=== PATIENT | female | born 1955 | race Caucasian/White ===

== ENCOUNTER 2019-02-21 06:50 | Day surgery (SDC) | payer OTHER ==
[2019-02-20 11:44] VITALS: BMI 23.5
[2019-02-21] MEDS ORDERED: Fentanyl 100 MCG/2 ML VIAL ONE ×3 (08:04→12:20)
[2019-02-21] MEDS ORDERED: Midazolam HCl 2 mg/2 ml Vial ONE (08:04)
[2019-02-21 08:15] LABS: #Eosinphils 0.1 thou/uL (0.0-0.7); #Lymphocytes 1.5 thou/uL (1.20-3.40); #Monocytes 0.5 thou/uL (0.11-0.59); #Neutrophils 4.8 thou/uL (1.40-6.50); %Basophils 0.6 % (0.0-1.0); %Eosinophils 1.2 % (0.0-10.0); %Monocytes 7.3 % (0.0-10.0); %Neutrophils 68.8 % (42.0-75.0); Hemoglobin 11.3 g/dL (12.0-16.0); Mean Corpuscular HGB CONC 34.1 g/dL (32.0-36.0); Mean Corpuscular Hemoglobin 31.4 pg (27.0-31.0); Mean Platelet Volume 6.7 fL (7.4-10.4); Platelet Count 273 thou/uL (130-400); RBC Distribution Width 11.6 % (11.5-14.5); Red Blood Cell (RBC) Count 3.62 mill/uL (4.20-5.40)
[2019-02-21] MEDS ORDERED: Bupivacaine PF 0.5% 30 ML VIAL ONE (08:22)
[2019-02-21] MEDS ORDERED: Neomycin-Polymyxin 1 ML AMP ONE (08:22)
[2019-02-21 08:30] LABS: Anion Gap 13 mmol/L (10-20); BUN (Urea Nitrogen) 21 mg/dL (9.8-20.1); Calc. Creatinine Clearance 81 mL/min (70-130); Calcium 9.3 mg/dL (7.8-10.44); Carbon Dioxide 25 mmol/L (23-31); Chloride 104 mmol/L (98-107); Estimated GFR-MDRD 75; Glucose 98 mg/dL (80-115); Potassium 4.1 mmol/L (3.5-5.1); Sodium 138 mmol/L (136-145)
[2019-02-21] MEDS ORDERED: Ondansetron PF 4 MG/2 ML Vial IVP PRN (08:33)
[2019-02-21] MEDS ORDERED: traMADol HCl 50 MG TAB PO PRN ×2 (08:33)
[2019-02-21] MEDS ORDERED: Promethazine HCl 25 MG/ML VIAL IM PRN (08:33)
[2019-02-21] MEDS ORDERED: Ropivacaine 0.2% 550 ML 550 ML NERVE BLCK SCH (08:33)
[2019-02-21] MEDS ORDERED: Zolpidem Tartrate 5 MG TAB PO PRN (08:33)
[2019-02-21] MEDS ORDERED: HYDROcodone/Acetaminophen 10/325 mg Tablet PO PRN ×2 (08:33)
[2019-02-21] MEDS ORDERED: Fentanyl 100 MCG/2 ML VIAL IV PRN (08:34)
[2019-02-21] MEDS ORDERED: Lidocaine 1% (PF) 30 ML VIAL ONE (08:36)
[2019-02-21] MEDS ORDERED: Scopolamine 1.5 mg/72 hour Patch ONE (08:59)
--- NOTE | 2019-02-21 11:16 | OP ---
DATE OF PROCEDURE: 02/21/2019 PROCEDURE PERFORMED: Open reduction and internal fixation of right trimalleolar ankle fracture. PREOPERATIVE DIAGNOSIS: Right trimalleolar ankle. POSTOPERATIVE DIAGNOSIS: Right trimalleolar ankle. COMPLICATIONS: None. ESTIMATED BLOOD LOSS: 50 mL. WINDOWS ARCHITECT: Fiordaliza Desai PA-C. IMPLANTS: Synthes distal fibular locking plate with multiple locking and nonlocking screws as well as 4.0 partially-threaded screws. INDICATIONS: Ms. Alatorre fractured her right ankle. She had an unstable trimalleolar ankle fracture. She was indicated for open reduction and internal fixation to restore anatomic fixation and promote healing. Risks have been reviewed in detail. She has elected to proceed with the operation. DESCRIPTION OF PROCEDURE: Ms. Alatorre was identified in the preoperative holding area. Her correct extremity was marked. She was carried to the operating room. She was positioned supine. General anesthesia was induced. A multidisciplinary time-out was performed. The right lower extremity was prepped and draped in sterile fashion. We began the procedure with a posterolateral approach to the distal fibula. We dissected down through the subcutaneous tissues to the fascia, which was opened. We then exposed the lateral aspect of the fibula. We then worked deeply down to the bony level. We irrigated the bone and cleared the bony edges. We then reduced the fracture into its anatomic position using reduction clamps. At this point, we placed a distal fibular plate along the lateral cortex. Multiple screws were placed proximally and distally. We took x-ray images confirming that hardware was placed appropriately. There was no complications. At this point, we thoroughly irrigated with copious lavage. Next, we moved to the medial ankle. We dissected down through the subcutaneous tissues to the medial malleolus. We exposed the underlying medial fracture. We then reduced the fracture to its anatomic position with reduction clamp. Next, we placed two 4.0 partially-threaded screws. This held our medial malleolus fracture. Finally, we assessed the posterior malleolus with intraoperative x-ray. We placed two 3.5 mm screws from anterior to posterior orientation holding the posterior malleolus. Again, we took x-ray images confirming reduction. There were no complications. We took x-ray images including a stress view, which showed no syndesmosis widening. At this point, we thoroughly irrigated. We closed and a splint was placed. The patient was taken to the recovery room in good condition. Job ID: [id number]
[2019-02-21] MEDS ORDERED: Ketorolac Tromethamine 30 MG/ML VIAL ONE (11:17)
[2019-02-21] MEDS ORDERED: Dexamethasone 20 MG/5 ML VIAL ONE (11:17)
[2019-02-21] MEDS ORDERED: Ondansetron PF 4 MG/2 ML Vial ONE (11:17)
[2019-02-21] MEDS ORDERED: ePHEDrine/0.9% NaCl/PF SYRINGE 50 mg/10 ml ONE (11:17)
[2019-02-21] MEDS ORDERED: Ropivacaine 0.2% HCl/PF (40 MG/20 ML VIAL) ONE (11:17)
[2019-02-21] MEDS ORDERED: Lidocaine 1% PF 5 ML VIAL ONE (11:17)
[2019-02-21] MEDS ORDERED: PROPOFOL 200 MG/20 ML VIAL ONE (11:17)
[2019-02-21] MEDS ORDERED: Bupivacaine HCl 0.5%/Epinephrine 1:200,000/PF 30 ml Vial ONE (11:17)
[2019-02-21] MEDS ORDERED: PHENYLEPHRINE-NS 100 MCG/ML 10 ML SYRINGE ONE (11:17)
[2019-02-21] MEDS ORDERED: Ketorolac Tromethamine 30 MG/ML VIAL IVP SCH (12:00)
[2019-02-21] MEDS ORDERED: HYDROcodone/Acetaminophen 5/325 mg Tablet ONE (13:47)
--- NOTE | 2019-02-21 18:34 | RAD ---
XR Ankle Rt 2 View History: ORIF Comparison: None. Findings: 2 spot images were obtained. Satisfactory fixation of the trimalleolar fracture. Impression: Total fluoroscopy time: 26.2 seconds.
--- NOTE | 2019-02-23 14:25 | EKG ---
Test Reason : PREOP Blood Pressure : / mmHG Vent. Rate : 072 BPM Atrial Rate : 072 BPM P-R Int : 238 ms QRS Dur : 078 ms QT Int : 382 ms P-R-T Axes : 074 048 071 degrees QTc Int : 418 ms Sinus rhythm with 1st degree A-V block Septal infarct , age undetermined Abnormal ECG No previous ECGs available Confirmed by JORDAN MOE (2) on 02/23/2019 2:25:25 PM Referred By: STAN Confirmed By:JORDAN MOE
== END 2019-02-21 14:10 | disposition home or self-care (01) ==
LOC: SDC 06:50
PROVIDERS: ATTEND Orthopaedic Surgery
PROC: 3E0T3BZ Introduction of Anesthetic Agent into Peripheral Nerves and Plexi, Percutaneous Approach (ICD-10-PCS; principal; 2019-02-21)
PROC: 0QSG04Z Reposition Right Tibia with Internal Fixation Device, Open Approach (ICD-10-PCS; principal; 2019-02-21)
PROC: 0QSJ04Z Reposition Right Fibula with Internal Fixation Device, Open Approach (ICD-10-PCS; principal; 2019-02-21)
DX: S82.851A Displaced trimalleolar fracture of right lower leg, initial encounter for closed fracture (principal); G89.18 Other acute postprocedural pain; I11.9 Hypertensive heart disease without heart failure; E78.5 Hyperlipidemia, unspecified; I48.91 Unspecified atrial fibrillation; G47.30 Sleep apnea, unspecified; G43.909 Migraine, unspecified, not intractable, without status migrainosus; E78.00 Pure hypercholesterolemia, unspecified; M85.80 Other specified disorders of bone density and structure, unspecified site; Z79.01 Long term (current) use of anticoagulants; Z79.810 Long term (current) use of selective estrogen receptor modulators (SERMs); Z79.899 Other long term (current) drug therapy; X50.1XXA Overexertion from prolonged static or awkward postures, initial encounter; W01.0XXA Fall on same level from slipping, tripping and stumbling without subsequent striking against object, initial encounter
CPT/HCPCS: 36415; 76000; 80048; 85025; 93005; 93010; A4306; C1713; J0670; J0690; J1100; J1885; J2001; J2250; J2405; J2704; J2795; J3010; S0020

== ENCOUNTER 2020-01-21 15:09 | Inpatient (IN) | payer OTHER ==
[~2020-01-21 15:09] MED LIST: Iopamidol-370 76% 500 ML 1 ML ONE
[2020-01-21 15:51] LABS: #Eosinphils 0.1 thou/uL (0.0-0.7); #Monocytes 0.4 thou/uL (0.11-0.59); #Neutrophils 7.8 thou/uL (1.40-6.50); %Basophils 0.4 % (0.0-1.0); %Eosinophils 0.8 % (0.0-10.0); %Lymphocytes 10.8 % (21.0-51.0); %Monocytes 4.4 % (0.0-10.0); %Neutrophils 83.6 % (42.0-75.0); Hemoglobin 11.5 g/dL (12.0-16.0); Mean Corpuscular HGB CONC 33.8 g/dL (32.0-36.0); Mean Corpuscular Hemoglobin 31.7 pg (27.0-31.0); Mean Corpuscular Volume 93.9 fL (78.0-98.0); Platelet Count 214 thou/uL (130-400); RBC Distribution Width 11.5 % (11.5-14.5); Red Blood Cell (RBC) Count 3.62 mill/uL (4.20-5.40); White Blood Cell (WBC) Count 9.3 thou/uL (4.8-10.8)
[2020-01-21 16:13] LABS: ALT (SGPT) 13 U/L (8-55); AST (SGOT) 22 U/L (5-34); Albumin 3.4 g/dL (3.4-4.8); Alkaline Phosphatase 54 U/L (40-110); Anion Gap 7 mmol/L (10-20); BUN (Urea Nitrogen) 16 mg/dL (9.8-20.1); Bilirubin, Total 0.2 mg/dL (0.2-1.2); Calc. Creatinine Clearance 0 mL/min (70-130); Carbon Dioxide 28 mmol/L (23-31); Chloride 106 mmol/L (98-107); Estimated GFR-MDRD 68; Globulin 2.5 g/dL (2.4-3.5); Glucose 139 mg/dL (80-115); Lipase 37 U/L (8-78); Protein, Total 5.9 g/dL (6.0-8.3); Sodium 137 mmol/L (136-145)
[2020-01-21] MEDS ORDERED: Ketorolac Tromethamine 30 MG/ML VIAL ONE (16:52)
--- NOTE | 2020-01-21 17:16 | CT ---
CT ABDOMEN AND PELVIS WITH IV CONTRAST 01/21/2020 CLINICAL INFORMATION: Right lower quadrant abdominal pain which has gradually worsened over past week. COMPARISON: None. Technique: Multiple contiguous axial CT images are obtained through the abdomen and pelvis with IV contrast. Cor onal reformatted images are provided. FINDINGS: Lower Chest: Mild linear atelectasis present at the left lung base. Vessels: Scattered vascular calcifications in the abdominal aorta. Abdomen: Portal vein:Patent Gallbladder: Decompressed Liver: Multiple hypodense lesions are scattered throughout each lobe of the liver likely related to m ultiple cysts. Metastatic disease would be difficult to entirely exclude given multiplicity but is thought less likely. However, there is a heterogeneous hypodense complex cystic lesion seen in the in ferior aspect posterior segment right hepatic lobe which is likely in a subcapsular location. There are areas of slight increased irregular density within this collection. This collection measures 7.5 cm craniocaudal x7 cm AP x5.7 cm transverse. There is minimal adjacent stranding. This may represent a complex cyst or cyst with hemorrhage. Cystic neoplastic process would be difficult to ent irely exclude. This is thought to more likely be in a subcapsular location as opposed to extracapsular. This does abut and result in mild mass effect on the right kidney. Spleen: within normal limits. Pancreas: within normal limits. Adrenals: within normal limits. Kidneys: Right kidney is rotated, and there is mild mass effect on the right kidney due to the comple x cystic lesion right upper quadrant. Left kidney has a normal CT appearance. Bowel: Evidence of colonic diverticulosis. Loops of small bowel are normal in caliber. Appendix: Mostly obscured due to unopacified loops of small bowel. Peritoneum: Small amount of intraperitoneal free fluid is seen adjacent to the anterior aspect of the liver as well as small amount of free fluid in the pelvis. Mesentery and Retroperitoneum: No enlarged mesenteric or retroperitoneal lymph nodes. Abdominal Wall: within normal limits. Pelvis: Reproductive Organs: Grossly within normal limits on this exam. There is a calcification seen in the right adnexa which could represent a calcification involving the right ovary, but this is difficult to further evaluate. Bladder: within normal limits. Bones: An 11 mm sclerotic density is seen in the L2 vertebral body likely related to a bone island. T here is mild right convex curvature of the thoracolumbar spine. IMPRESSION: 1.Complex cystic lesion which is thought to be in a subcapsular location at the most inferior aspect of the right hepatic lobe as opposed to a cystic lesion in an extracapsular location. This does abut the right kidney with slight mass effect on the right kidney. There are irregular areas of incre ased density seen within this cystic lesion. This could be related to a large hepatic cyst which contains hemorrhage and possibly related to cyst rupture given there is free fluid in the abdomen and pelvis. However, a neoplastic process would be difficult to entirely exclude. MRI abdomen is recommended following hepatic mass protocol. 2. Multiple hypodense lesions scattered throughout the liver likely related to cysts. 3. Small amount of free fluid in the abdomen and pelvis. 4. Mild stranding adjacent to the complex cystic lesion right upper quadrant. 5. Colonic diverticulosis. 6. Above findings discussed with Dr. Costello in the emergency department on 01/21/2020 at 1712 hours.
[2020-01-21 17:51] LABS: Bilirubin Negative (Negative); Blood, Urine Negative (Negative); Clarity Clear (Clear); Glucose, Urine (Dipstick) Normal (Negative); Ketone, Urine Negative (Negative); Leukocyte Negative Leu/uL (Negative); Nitrite Negative (Negative); Protein, Urine (Dipstick) Negative (Neg-Trace); Specific Gravity, Urine 1.026 (1.002-1.036); Urobilinogen Normal mg/dL (Less than 2)
[2020-01-21] MEDS ORDERED: Calcium Carbonate 500 MG ChewTAB PO PRN (18:58)
[2020-01-21] MEDS ORDERED: Ondansetron PF 4 MG/2 ML Vial IVP PRN (18:58)
[2020-01-21] MEDS ORDERED: Bisacodyl 10 MG SUPP PR PRN (18:58)
[2020-01-21] MEDS ORDERED: Sodium Chloride 0.65% Nasal 44 ML BOT EA NARE PRN (18:58)
[2020-01-21] MEDS ORDERED: Diabetic Tussin 200 MG/10 ML UDCUP PO PRN (18:58)
[2020-01-21] MEDS ORDERED: Loratadine 10 MG TAB PO PRN (18:58)
[2020-01-21] MEDS ORDERED: Ondansetron ODT 4 MG TAB PO PRN (18:58)
[2020-01-21] MEDS ORDERED: Loperamide HCl 2 MG CAP PO PRN (18:58)
[2020-01-21] MEDS ORDERED: Senokot S 8.6-50 MG TAB PO PRN (18:58)
[2020-01-21] MEDS ORDERED: Acetaminophen 325 MG TAB PO PRN (18:58)
[2020-01-21] MEDS ORDERED: Cepastat Lozenges 1 LOZ PO PRN (18:58)
[2020-01-21] MEDS ORDERED: Zolpidem Tartrate 5 MG TAB PO PRN (18:58)
[2020-01-21] MEDS ORDERED: Guaifenesin DM 100-10/5 ML UDCUP PO PRN (18:58)
[2020-01-21] MEDS ORDERED: Ketorolac Tromethamine 30 MG/ML VIAL IVP PRN (19:01)
[2020-01-21 19:27] LABS: INR-International Normal Ratio 1.1; PTT 30.4 sec (22.9-36.1); Prothrombin Time 14.8 sec (12.0-14.7)
--- NOTE | 2020-01-21 19:34 | HP ---
PRIMARY CARE PHYSICIAN: [facility]. The patient's primary care physician is out of city in [place], [place]. REASON FOR ADMISSION: Acute abdominal pain. HISTORY OF PRESENT ILLNESS: A 64-year-old female who has underlying history of chronic atrial fibrillation, on chronic anticoagulation therapy, who has abdominal pain on the right side for about one week. The pain was getting worse with walking. Today, her pain was so severe that she was not able to ambulate. She also had nausea and episode of vomiting. The patient's symptoms are significantly worse enough to require to go to emergency room. The patient reports that any movement was giving her significant amount of pain and she was not able to stand because of abdominal pain. She did not have any dizziness. She denies any chronic diarrhea. She denies any travel out of country, she denies any fever or chills. She denies any syncope. She denies any chest pain, palpitation, or shortness of breath. In the emergency room, the patient had episode of hypotension with blood pressure 78/44, which responded to IV fluid. She is in atrial fibrillation but rate is controlled, she is afebrile. In the emergency room, the patient had CT abdomen and pelvis with contrast which showed multiple hypodense lesions scattered throughout each lobe of the liver consistent with multiple liver cysts and the patient also had a heterogenous hypodense complex cystic lesion in the inferior aspect of for right hepatic lobe, which was pretty much 7.5 cm x 7 cm x 5.7 cm. In the emergency room, the patient was given pain medication. After that, she was comfortable. PAST MEDICAL HISTORY: Hypertension, chronic atrial fibrillation, chronic anticoagulation, dyslipidemia, osteopenia. PAST SURGICAL HISTORY: Right ankle surgery, bilateral wrist surgery, tubal ligation. PAST PSYCHIATRIC HISTORY: Reviewed and negative. SOCIAL HISTORY: The patient is , no history of tobacco, alcohol, or illicit drug abuse, she is retired. FAMILY HISTORY: No strong family history of premature coronary artery disease, stroke, or cancer. CURRENT HOME MEDICATIONS: 1. Multaq 400 mg twice daily. 2. Eliquis 5 mg twice daily. 3. Metoprolol tartrate 25 mg daily. 4. Pravastatin 20 mg p.o. at bedtime. 5. Raloxifene 60 mg p.o. daily. 6. Niacin 100 mg p.o. daily. ALLERGIES: NO KNOWN DRUG ALLERGIES. REVIEW OF SYSTEM: All review of systems reviewed with her and negative except as mentioned in HPI. EMERGENCY ROOM COURSE: The patient is given Toradol 30 mg IV fluid 2 L. PHYSICAL EXAMINATION: VITAL SIGNS: On arrival, blood pressure currently 93/58, pulse 60 and irregular, respiratory rate 18, temperature 98.1, saturation 99% on room air. Weight 61.2 kg. GENERAL: The patient is currently alert, awake, no obvious acute distress. HEAD: Normocephalic, atraumatic. EYES: Pupils are round and reactive to light. Extraocular muscle intact. ENT: Oropharynx within normal limits. Moist mucous membranes. No oral lesions. No pharyngeal erythema. No exudate. NECK: Supple. No JVD. No meningeal signs of irritation. LUNGS: Clear to auscultation without any rhonchi or rales. CARDIAC: S1 and S2 irregular, no murmur. No gallop. No rub. ABDOMEN: The patient has significant tenderness in the right upper and lower quadrants, no peritoneal sign, no guarding, no rigidity, no rebound. BACK: Within normal limits. No CVA tenderness. EXTREMITIES: Upper extremities, passive movement of all joints are normal. Lower extremities, no edema, good distal pulsation. SKIN: No skin rash. HEMATOLOGICAL SYSTEM: No lymphadenopathy. PSYCHIATRIC: Normal affect. NEUROLOGIC: Nonfocal examination. SIGNIFICANT LABORATORY DATA: EKG on personnel monitor showing atrial fibrillation with controlled rate. CT of abdomen and pelvis showing complex cystic lesion throughout the right hepatic lobe as well as multiple small cystic lesions. CBC: WBC 9.3, hemoglobin 11.5, platelet 214. BMP: Sodium 137, potassium 4.0, chloride 106, carbon dioxide 28, BUN 16, creatinine 0.85, glucose 139, calcium 8.0. LFT: AST 22, ALT 13, alkaline phosphatase 54, albumin 3.4, lipase 37. Urinalysis normal. ASSESSMENT AND PLAN: 1. Acute right-sided abdominal pain. The patient's abdominal pain is explained by complex cystic lesion in the right liver lobe, this cyst is pretty much big sized and has concern for internal bleeding into cyst, the patient may have a cyst rupture. At this point, we will consult General Surgery for evaluation. Neoplastic versus infectious disease process is also likely. We will do blood culture, the patient does not have any history to support amoebic cyst, the patient does not have any history to support any pyogenic cyst, neoplastic process is favored but other etiology needs to be excluded, we will obtain MRI of abdomen for further evaluation. We will check tumor markers. 2. Atrial fibrillation, currently rate controlled, continue Multaq. Because of low blood pressure, we will hold on metoprolol. 3. Chronic anticoagulation. We will hold on Eliquis therapy because we are hoping that the patient may need surgical procedure for diagnostic reason or possible surgery in case of deterioration. 4. Dyslipidemia. Continue pravastatin 20 mg p.o. at bedtime. 5. Osteopenia. The patient is on raloxifene 60 mg p.o. daily. 6. Anemia, normocytic, normochromic. 7. Deep venous thrombosis prophylaxis, SCD boots. 8. Gastrointestinal prophylaxis, Pepcid 20 mg p.o. b.i.d. 9. Hypotension. We will continue IV fluid NS at 125 mL/h. DISPOSITION PLAN: Based on clinical course. We will closely monitor her hemodynamics while in hospital, and in case of deterioration, we will consider transfer to telemetry or IMCU if needed. Currently, the patient is stable enough to go to medical floor. Her pain will be controlled with morphine. She will be also given Toradol on an as-needed basis. Job ID: [id number]
[2020-01-21 19:35] LABS: Lactic Acid 0.9 mmol/L (0.5-2.2)
[2020-01-21 20:14] LABS: Alpha-Fetoprotein,Tumor Marker 3.1 ng/mL (0.89-8.78); Cancer Antigen - CA 125 27.8 U/mL (Less than 35)
[2020-01-21 20:26] LABS: #Eosinphils 0.1 thou/uL (0.0-0.7); #Lymphocytes 1.6 thou/uL (1.20-3.40); #Monocytes 0.5 thou/uL (0.11-0.59); #Neutrophils 7.7 thou/uL (1.40-6.50); %Basophils 0.5 % (0.0-1.0); %Eosinophils 0.6 % (0.0-10.0); %Lymphocytes 16.1 % (21.0-51.0); %Monocytes 5.1 % (0.0-10.0); %Neutrophils 77.7 % (42.0-75.0); Hemoglobin 11.3 g/dL (12.0-16.0); Mean Corpuscular HGB CONC 33.7 g/dL (32.0-36.0); Mean Corpuscular Hemoglobin 31.8 pg (27.0-31.0); Mean Corpuscular Volume 94.2 fL (78.0-98.0); Mean Platelet Volume 6.9 fL (7.4-10.4); Platelet Count 205 thou/uL (130-400); RBC Distribution Width 11.4 % (11.5-14.5); Red Blood Cell (RBC) Count 3.55 mill/uL (4.20-5.40); White Blood Cell (WBC) Count 9.9 thou/uL (4.8-10.8)
--- NOTE | 2020-01-21 20:50 | CON ---
DATE OF CONSULTATION: 01/21/2020 CHIEF COMPLAINT: Abdominal pain, hepatic cysts. HISTORY OF PRESENT ILLNESS: Patient is a 64-year-old very pleasant white female. She had noted some degree of right-sided abdominal pain over the course of the past week. She felt acute onset of right-sided abdominal pain this afternoon. This is such that she could not get up and move in. Therefore, an ambulance was called and brought her into the hospital for further evaluation. She noted onset of nausea and vomiting associated with this pain. She denied any prior history of abdominal problems. She denied any knowledge of hepatic abnormality. Here in the emergency room, she was evaluated with laboratory and radiologic studies. Her laboratory studies showed a mild anemia with a hemoglobin of 11.5. Of note, this is stable from her last hemoglobin level at this facility about a year ago. Her white blood cell count is normal at 9.3 but with a left shift. Her coagulation panel is unremarkable with a slightly elevated PT. It is noted that she is on Eliquis, however. Chemistry profile is essentially unremarkable as well as is her urine. CT scan of abdomen and pelvis was obtained. This reveals marked abnormality of the liver with numerous lesions appearing consistent with multiple cysts. These are large and throughout the liver. There is a dominant complex cystic lesion posteriorly at the inferior aspect of the right lobe. This appears to potentially be consistent with bleeding into one of the hepatic cysts. There is a small amount of free-fluid external to the liver at this area. She has an abnormal appearing right kidney as it appears to be pushed inferior and medial, potentially by chronicity of hepatic enlargement related to her cysts. There was a sclerotic density noted within one of her lumbar vertebra. No other significant intraabdominal abnormality noted. PAST MEDICAL HISTORY: 1. Atrial fibrillation. 2. Hypercholesterolemia. 3. Hypertension. 4. Osteopenia. PAST SURGICAL HISTORY: She had an ankle fracture repaired in 2019. She has had bilateral carpal tunnel surgery. She has had a tubal ligation many years in the past. MEDICATIONS: Eliquis (which she last took this morning), Multaq, metoprolol, pravastatin, and raloxifene. ALLERGIES: NO KNOWN DRUG ALLERGIES. PERSONAL AND SOCIAL HISTORY: She is and her is present at bedside. They have two children. She lives in [place]. She has apparently lived there for about the past two years, having moved here from the [facility] of [place]. She does not have any physicians locally. She still sees her clinical reimbursement specialist intermittently in [place]. She does not smoke, does not drink alcohol, and is retired. REVIEW OF SYSTEMS: Ten-system review is otherwise negative. FAMILY HISTORY: Noncontributory. PHYSICAL EXAMINATION: VITAL SIGNS: She is afebrile. She is mildly hypotensive with a systolic blood pressure in the mid 90s. She tells me she is baseline hypotensive while on her medication. Her heart rate is regular rate and rhythm with a rate of about 70 currently. HEAD, EYES, EARS, NOSE, AND THROAT: Unremarkable. NECK: Supple without mass or tenderness. LUNGS: Clear to auscultation throughout. CARDIAC: Regular rate and rhythm without murmur. ABDOMEN: Significantly tender to palpation throughout, worse in the right upper and lower quadrants. She has much less discomfort on the left side, but tells me that she is just a little sore in that area. EXTREMITIES: Unremarkable. ASSESSMENT: Patient has what appears to be polycystic liver disease. She was unaware of these abnormalities previously. My guess based upon her current findings is that she bled into one of the cysts and that produced her severe pain with nausea and vomiting. Of concern, however, is that she is anticoagulated chronically on Eliquis. This therefore could lead to further and/or ongoing bleeding. Her CT scan does not suggest active bleeding either into the cyst or extrahepatic. She tells me that her discomfort is actually improved compared to when she came here. For now, I would recommend observation of this. Her Eliquis should be discontinued. If her vital signs and her hemoglobin remained stable and her pain improves, hopefully should be able to be discharged home. She will need, however, to see a liver surgeon in the near future. Given the potential concern for bleed in this area, her Eliquis will have to be discontinued for the future. I have discussed all this in detail with the patient and her and answered all questions. They seem comfortable with this for now and as she does not appear to be bleeding, I do not think she requires any angiography or consideration of embolization currently. Job ID: [id number]
[2020-01-21] MEDS ORDERED: Pravastatin Sodium 20 MG TAB PO SCH (21:00)
[2020-01-21] MEDS ORDERED: Famotidine 20 MG TAB PO SCH (21:00)
[2020-01-21 21:39] VITALS: BMI 22.5
[2020-01-21] MEDS: Sodium Chloride 0.9% 1,000 ML IV SCH (22:01)
[2020-01-21] MEDS: HYDROcodone/Acetaminophen 5/325 mg Tablet PO PRN (22:07)
[2020-01-22] MEDS: Piperacillin/Tazobactam 3.375 GM in Sodium Chloride 0.9% 100 ML IVPB SCH ×3 (01:02→11:53)
[2020-01-22] MEDS: HYDROcodone/Acetaminophen 5/325 mg Tablet PO PRN ×2 (02:24→08:47)
[2020-01-22 04:35] LABS: #Eosinphils 0.1 thou/uL (0.0-0.7); #Lymphocytes 1.4 thou/uL (1.20-3.40); #Monocytes 0.3 thou/uL (0.11-0.59); #Neutrophils 3.2 thou/uL (1.40-6.50); %Basophils 0.5 % (0.0-1.0); %Eosinophils 1.1 % (0.0-10.0); %Lymphocytes 27.8 % (21.0-51.0); %Neutrophils 64.7 % (42.0-75.0); Mean Corpuscular HGB CONC 34.1 g/dL (32.0-36.0); Mean Corpuscular Hemoglobin 31.8 pg (27.0-31.0); Mean Corpuscular Volume 93.1 fL (78.0-98.0); Mean Platelet Volume 6.9 fL (7.4-10.4); Platelet Count 164 thou/uL (130-400); RBC Distribution Width 11.4 % (11.5-14.5); Red Blood Cell (RBC) Count 3.14 mill/uL (4.20-5.40); White Blood Cell (WBC) Count 4.9 thou/uL (4.8-10.8)
[2020-01-22] MEDS: Sodium Chloride 0.9% 1,000 ML IV SCH (05:07)
[2020-01-22 05:19] LABS: ALT (SGPT) 17 U/L (8-55); AST (SGOT) 30 U/L (5-34); Albumin 2.8 g/dL (3.4-4.8); Alkaline Phosphatase 36 U/L (40-110); Anion Gap 10 mmol/L (10-20); BUN (Urea Nitrogen) 15 mg/dL (9.8-20.1); Bilirubin, Total 0.8 mg/dL (0.2-1.2); Calc. Creatinine Clearance 76 mL/min (70-130); Calcium 7.9 mg/dL (7.8-10.44); Carbon Dioxide 21 mmol/L (23-31); Chloride 111 mmol/L (98-107); Estimated GFR-MDRD 76; Globulin 2.1 g/dL (2.4-3.5); Glucose 99 mg/dL (80-115); Potassium 4.1 mmol/L (3.5-5.1); Protein, Total 4.9 g/dL (6.0-8.3); Sodium 138 mmol/L (136-145)
[2020-01-22] MEDS ORDERED: Dronedarone HCl 400 MG TAB PO SCH (08:00)
[2020-01-22] MEDS ORDERED: Pantoprazole 40 MG VIAL IVP SCH (09:00)
[2020-01-22 11:43] VITALS: BP 91/55; TEMP 97.8
--- NOTE | 2020-01-22 16:46 | DIS ---
DATE OF ADMISSION: 01/21/2020 DATE OF DISCHARGE: 01/22/2020 DISCHARGE DISPOSITION: Home. PRIMARY DISCHARGE DIAGNOSES: Polycystic liver with abdominal pain with suspicion for possible bleeding to one of the cyst. SECONDARY DISCHARGE DIAGNOSES: History of chronic atrial fibrillation, on Eliquis; hypertension; dyslipidemia. PROCEDURES DONE DURING HOSPITALIZATION: CT of the abdomen and pelvis done on the day of admission showed numerous cysts in the liver. There is a complex cystic lesion in the subcapsular location at the most inferior aspect of the right hepatic lobe. There is a cystic lesion in the extracapsular location, which was abutting the right kidney with slight mass effect on the right kidney. There were irregular marked areas of increased density within the cystic lesion, which could represent hemorrhage and possibly cyst rupture. There is mild stranding adjacent to the complex cystic lesion in the right upper quadrant. Colonic diverticulosis was seen. Echo with 2D Doppler showed EF of 50% to 55%. Blood cultures x2, no growth. White count of 9, serial H and H remained around 10 and 29, platelet count 164, MCV 93. PT/INR 14.8 and 1.1, PTT 30. BUN 15, creatinine 0.7. AST 22, ALT 13, alkaline phosphatase 54, albumin 3.4. AFP tumor marker 3.1. CA-125 was 27.8. Lipase 37. Serum bicarb 28. UA showed no evidence of infection. INPATIENT CONSULT: Dr. Sherman for General Surgery. DISCHARGE MEDICATIONS: 1. Raloxifene 60 mg p.o. at bedtime. 2. Multaq 400 mg twice daily. 3. Niacin extended release 1000 mg p.o. daily. 4. Pravastatin 20 mg p.o. at bedtime. 5. Ultram 50 mg four times daily p.r.n. ALLERGIES: NO KNOWN DRUG ALLERGIES. DISCHARGE PLAN: The patient will follow up with Dr. Greg Norton, [facility] liver surgeon, on Sunday. Their office will be calling her shortly with the time of appointment. She needs follow up with her primary care physician, Fiordaliza Desai in 1 week. BRIEF COURSE DURING HOSPITALIZATION: The patient initially came in with complaints of severe abdominal pain in the right upper quadrant. Initial CAT scan done showed numerous cysts in the liver. There was a complex cyst with possible hemorrhagic fluid in it and suspicion for bleed. She was evaluated by Dr. Sherman as well. There was no sign of sepsis or infection. She was on Eliquis for chronic atrial fibrillation which was held. The patient has been advised to hold Eliquis until she sees Dr. Greg Norton, hepatic surgeon in [place]. I have personally spoken to Dr. Greg Norton, whose office will call her and set up appointment for Sunday. The patient is advised to go to the nearest emergency room if she were to feel dizzy, worsening abdominal pain, or any new symptoms that she develops in the meantime. She and her were clearly educated regarding above. The patient's systolic blood pressure usually runs low per the patient. She has been ambulating with blood pressures ranging from 96/58 to 91/55. Her abdominal pain is better controlled now. She was given a prescription for Ultram for the same. Please note, I have seen and examined the patient on the day of discharge. Job ID: [id number] [id number]
[2020-01-22] MEDS ORDERED: Simvastatin 10 MG TAB PO SCH (21:00)
== END 2020-01-22 14:05 | disposition home or self-care (01) | DRG 442 ==
LOC: ERS 15:09 → 2NO 18:59
PROVIDERS: ADMIT Internal Medicine; ATTEND Internal Medicine
DX: Q44.6 Cystic disease of liver (principal); I48.20 Chronic atrial fibrillation, unspecified; E78.5 Hyperlipidemia, unspecified; I10 Essential (primary) hypertension; M85.80 Other specified disorders of bone density and structure, unspecified site; D64.9 Anemia, unspecified; I95.9 Hypotension, unspecified; E78.00 Pure hypercholesterolemia, unspecified; Z79.01 Long term (current) use of anticoagulants; Z98.51 Tubal ligation status; Z79.899 Other long term (current) drug therapy
CPT/HCPCS: 36415; 74177; 80053; 81003; 82105; 83605; 83690; 85025; 85610; 85730; 86301; 86304; 87040; 93306; 96374; C9113; J1885; J2543; J3490; Q9967

== ENCOUNTER 2021-05-09 21:30 | Observation (INO) | payer OTHER ==
[2021-05-09 22:34] LABS: #Eosinphils 0.1 thou/uL (0.0-0.7); #Lymphocytes 1.5 thou/uL (1.20-3.40); #Monocytes 0.4 thou/uL (0.11-0.59); #Neutrophils 4.2 thou/uL (1.40-6.50); %Basophils 0.7 % (0.0-1.0); %Eosinophils 0.9 % (0.0-10.0); %Lymphocytes 24.2 % (21.0-51.0); %Monocytes 6.7 % (0.0-10.0); %Neutrophils 67.5 % (42.0-75.0); Hemoglobin 13.8 g/dL (12.0-16.0); Mean Corpuscular HGB CONC 34.6 g/dL (32.0-36.0); Mean Corpuscular Hemoglobin 31.9 pg (27.0-31.0); Mean Corpuscular Volume 92.2 fL (78.0-98.0); Mean Platelet Volume 6.7 fL (7.4-10.4); Platelet Count 238 thou/uL (130-400); RBC Distribution Width 11.3 % (11.5-14.5); Red Blood Cell (RBC) Count 4.34 mill/uL (4.20-5.40); White Blood Cell (WBC) Count 6.2 thou/uL (4.8-10.8)
[2021-05-09 22:48] LABS: ALT (SGPT) 16 U/L (8-55); AST (SGOT) 28 U/L (5-34); Albumin 4.4 g/dL (3.4-4.8); Alkaline Phosphatase 65 U/L (40-110); Anion Gap 16 mmol/L (10-20); BUN (Urea Nitrogen) 15 mg/dL (9.8-20.1); Bilirubin, Total 0.3 mg/dL (0.2-1.2); Calc. Creatinine Clearance 0 mL/min (70-130); Calcium 9.4 mg/dL (7.8-10.44); Carbon Dioxide 21 mmol/L (23-31); Chloride 106 mmol/L (98-107); Globulin 3.4 g/dL (2.4-3.5); Glucose 142 mg/dL (80-115); Potassium 3.7 mmol/L (3.5-5.1); Protein, Total 7.8 g/dL (5.8-8.1); Sodium 139 mmol/L (136-145)
[2021-05-09] MEDS ORDERED: Aspirin 325 MG TAB ONE (23:24)
[2021-05-10] MEDS ORDERED: Acetaminophen 325 MG TAB PO PRN ×2 (02:45→11:07)
[2021-05-10] MEDS ORDERED: Ondansetron ODT 4 MG TAB SL PRN (02:45)
[2021-05-10] MEDS ORDERED: Ondansetron PF 4 MG/2 ML Vial IVP PRN (02:45)
[2021-05-10] MEDS ORDERED: Acetaminophen 325 MG TAB ONE (10:55)
[2021-05-10] MEDS ORDERED: Ondansetron ODT 4 MG TAB ONE (10:55)
[2021-05-10] MEDS ORDERED: Ondansetron ODT 4 MG TAB PO PRN (11:07)
[2021-05-10] MEDS ORDERED: hydrALAZINE 20 MG/ML VIAL SLOW IVP PRN (11:08)
[2021-05-10] MEDS ORDERED: Electrolyte Replacement Protocol 1 EACH FS SCH (11:15)
[2021-05-10] MEDS ORDERED: Electrolyte Replacement Protocol FS PRN (11:45)
[2021-05-10 11:48] LABS: SARS-CoV-2 PCR by NAA Not Detected (NotDetected)
[2021-05-10 13:40] LABS: Hemoglobin A1c 5.6 % (4.0-6.0)
[2021-05-10 14:05] VITALS: BMI 23.1
[2021-05-10] MEDS ORDERED: Atorvastatin Calcium 40 MG TAB PO SCH (21:00)
[2021-05-11] MEDS: traMADol HCl 50 MG TAB PO PRN ×2 (00:28→05:50)
[2021-05-11 07:30] LABS: #Eosinphils 0.2 thou/uL (0.0-0.7); #Lymphocytes 1.8 thou/uL (1.20-3.40); #Monocytes 0.4 thou/uL (0.11-0.59); #Neutrophils 2.7 thou/uL (1.40-6.50); %Basophils 0.6 % (0.0-1.0); %Lymphocytes 35.1 % (21.0-51.0); %Monocytes 8.7 % (0.0-10.0); %Neutrophils 52.6 % (42.0-75.0); Hemoglobin 12.6 g/dL (12.0-16.0); Mean Corpuscular HGB CONC 34.9 g/dL (32.0-36.0); Mean Corpuscular Hemoglobin 32.7 pg (27.0-31.0); Mean Corpuscular Volume 93.7 fL (78.0-98.0); Mean Platelet Volume 6.7 fL (7.4-10.4); Platelet Count 206 thou/uL (130-400); RBC Distribution Width 11.4 % (11.5-14.5); Red Blood Cell (RBC) Count 3.84 mill/uL (4.20-5.40); White Blood Cell (WBC) Count 5.1 thou/uL (4.8-10.8)
[2021-05-11 07:55] LABS: Anion Gap 12 mmol/L (10-20); BUN (Urea Nitrogen) 19 mg/dL (9.8-20.1); Calc. Creatinine Clearance 75 mL/min (70-130); Calcium 8.9 mg/dL (7.8-10.44); Carbon Dioxide 25 mmol/L (23-31); Cardiac Risk 2.4 (Less than 4.5); Cholesterol 139 mg/dl (< 200 Desired); Glucose 87 mg/dL (80-115); HDL Cholesterol 58 mg/dL (>60 Neg Risk); LDL Cholesterol, Calculated 70 mg/dL; Triglycerides 57 mg/dL (Less than 150)
[2021-05-11 08:03] LABS: Chloride 104 mmol/L (98-107); Sodium 137 mmol/L (136-145)
[2021-05-11] MEDS ORDERED: Magnesium 2 GM/50 ML 2 GM in Premix Bag 1 BAG IVPB SCH (08:30)
[2021-05-11] MEDS ORDERED: Aspirin 81 mg Enteric Coated Tablet PO SCH (09:00)
[2021-05-11 11:48] VITALS: BP 93/60; TEMP 97.9
[2021-05-11] MEDS ORDERED: Calcium Carbonate 500 MG ChewTAB PO PRN (12:06)
[2021-05-11] MEDS ORDERED: GUAIFENESIN SF SOLN 200 MG/10 ML UDCUP PO PRN (12:06)
[2021-05-11] MEDS ORDERED: HYDROcodone/Acetaminophen 5/325 mg Tablet PO PRN (12:06)
[2021-05-11] MEDS ORDERED: Loratadine 10 MG TAB PO PRN (12:06)
[2021-05-11] MEDS ORDERED: Senokot S 8.6-50 MG TAB PO PRN (12:06)
[2021-05-11] MEDS ORDERED: Zolpidem Tartrate 5 MG TAB PO PRN (12:06)
[2021-05-11] MEDS ORDERED: Loperamide HCl 2 MG CAP PO PRN (12:06)
[2021-05-11] MEDS ORDERED: hydrALAZINE 20 MG/ML VIAL SLOW IVP PRN (12:07)
== END 2021-05-11 13:11 | disposition home or self-care (01) ==
LOC: ERS 21:30 → ERHOLD 23:21 → NEURO 05-10 14:16
PROVIDERS: ADMIT Internal Medicine; ATTEND Internal Medicine
DX: G45.9 Transient cerebral ischemic attack, unspecified (principal); I48.0 Paroxysmal atrial fibrillation; I10 Essential (primary) hypertension; E78.5 Hyperlipidemia, unspecified; G43.909 Migraine, unspecified, not intractable, without status migrainosus; I07.1 Rheumatic tricuspid insufficiency; E78.00 Pure hypercholesterolemia, unspecified; M85.80 Other specified disorders of bone density and structure, unspecified site; Q44.6 Cystic disease of liver; Z79.01 Long term (current) use of anticoagulants; Z79.810 Long term (current) use of selective estrogen receptor modulators (SERMs); Z79.899 Other long term (current) drug therapy; Z20.822 Contact with and (suspected) exposure to COVID-19
CPT/HCPCS: 36415; 36416; 70450; 70498; 70551; 80048; 80053; 80061; 83036; 83735; 84443; 84484; 85025; 93005; 93306; 93880; 95712; 95819; 95957; 96374; G0378; J3475; Q0162; U0003; U0005

== ENCOUNTER 2024-11-17 07:39 | Outpatient (CLI) | payer MEDICARE | END 2024-11-17 07:40 | disposition home or self-care (01) | LOC: BICULT 07:39 | PROVIDERS: ATTEND Family Medicine | DX: R74.01 Elevation of levels of liver transaminase levels (principal); K76.89 Other specified diseases of liver | CPT/HCPCS: 76705 ==

== ENCOUNTER 2024-11-27 09:36 | Outpatient (CLI) | payer MEDICARE | END 2024-11-27 09:37 | disposition home or self-care (01) | LOC: BICMAMMO 09:36 | PROVIDERS: ATTEND Family Medicine | DX: Z12.31 Encounter for screening mammogram for malignant neoplasm of breast (principal); N64.89 Other specified disorders of breast; M85.89 Other specified disorders of bone density and structure, multiple sites; Z78.0 Asymptomatic menopausal state | CPT/HCPCS: 77063; 77067; 77080 ==

== ENCOUNTER 2025-03-02 09:06 | Outpatient (CLI) | payer MEDICARE ==
[2025-03-02 09:28] LABS: Estimated GFR - POC 70.0
[2025-03-02] MEDS ORDERED: Iopamidol 370 76% 100 ML VIAL ONE (12:50)
== END 2025-03-02 09:07 | disposition home or self-care (01) ==
LOC: CT 09:06
PROVIDERS: ATTEND Internal Medicine Gastroenterology
DX: K76.89 Other specified diseases of liver (principal); R93.2 Abnormal findings on diagnostic imaging of liver and biliary tract; K57.30 Diverticulosis of large intestine without perforation or abscess without bleeding
CPT/HCPCS: 36415; 74177; 82565; Q9967